=== PATIENT | female | born 1980 | race Caucasian/White ===

== ENCOUNTER 2022-01-11 14:19 | Outpatient (CLI) | payer MEDICAID, SELFPAY ==
[2022-01-11 16:06] LABS: Absolute Lymphocyte Count 2.11 X10^3/uL (0.83-4.51); Absolute Neutrophil Count 6.4 X10^3/uL (2.0-7.7); Basophil# 0.03 X10^3/uL; Basophil% 0.3 % (0-1); Eosinophil# 0.07 X10^3/uL; Eosinophils% 0.7 % (0-5); Lymphocyte # 2.11 X10^3/ul (0.83-4.51); Lymphocyte % 22.4 % (19-41); Mean Corp Hgb Conc 34.1 g/dL (32-36); Mean Corpuscular Hgb 30.4 pg (27.0-32.0); Mean Corpuscular Volume 89.1 fL (81-99); Mean Platelet Vol. 10.2 fl (6.2-12.0); Monocyte# 0.73 X10^3/uL; Monocyte% 7.8 % (0-10); NRBC Flagged by Analyzer 0 % (0-5); Neutrophil # 6.43 X10^3/uL (2.7-7.7); Neutrophil % 68.4 % (47-70); Platelet Count 274 K/mm3 (150-450); RBC Distribution Width CV 13.2 % (11.6-14.6); RBC Distribution Width SD 42.8 fl (35.1-43.9); White Blood Count 9.4 K/mm3 (4.4-11.0)
[2022-01-12 08:31] LABS: HIV - WCH Non-Reactive (Nonreactive); Hepatitis B Surface Antigen Non-Reactive (Nonreactive); Hepatitis C Antibody Non-Reactive (Nonreactive); Rubella IgG Reactive (Nonreactive); Syphilis Antibodies Non-reactive
[2022-01-15 19:07] LABS: Chlamydia By Nucleic Acid AMP Negative (Negative)
[2022-01-15 20:56] LABS: Gonococcus By Nucleic Acid AMP Negative (Negative)
[2022-01-18 12:35] LABS: HPV APTIMA, High Risk Negative (Negative)
== END 2022-01-11 23:59 | disposition home or self-care (01) ==
PROVIDERS: Visit Provider Student in an Organized Health Care Education/Training Program
DX: Z34.81 Encounter for supervision of other normal pregnancy, first trimester (principal)
CPT/HCPCS: 36415; 85025; 86703; 86762; 86780; 86803; 87086; 87088; 87340; 87491; 87591; 87624; 88175; G0145

== ENCOUNTER → 2022-05-17 | Outpatient (CLI) | payer MEDICAID, SELFPAY ==
[2022-05-17 16:34] LABS: Hematocrit 36.5 % (37-47); Hemoglobin 12.1 g/dL (12.0-15.0); Mean Corp Hgb Conc 33.2 g/dL (32-36); Mean Corpuscular Hgb 31.8 pg (27.0-32.0); Mean Corpuscular Volume 95.8 fL (81-99); Mean Platelet Vol. 9.8 fl (6.2-12.0); Platelet Count 178 K/mm3 (150-450); RBC Distribution Width CV 13.7 % (11.6-14.6); RBC Distribution Width SD 48.2 fl (35.1-43.9); Red Blood Count 3.81 M/mm3 (4.2-5.4); White Blood Count 7.9 K/mm3 (4.4-11.0)
[2022-05-17 16:40] LABS: Glucose Challenge Gest 1H 50g 143 mg/dL (70-140)
== END | disposition home or self-care (01) ==
PROVIDERS: Visit Provider Student in an Organized Health Care Education/Training Program
DX: Z34.83 Encounter for supervision of other normal pregnancy, third trimester (principal)
CPT/HCPCS: 36415; 82950; 85027; 86850

== ENCOUNTER → 2022-05-29 | Outpatient (CLI) | payer MEDICAID, SELFPAY ==
[2022-05-29 11:16] LABS: Glucose Challenge Gest 1H 50g 81 mg/dL (70-140)
== END | disposition home or self-care (01) ==
LOC: WOBLAB 09:22
PROVIDERS: Visit Provider Student in an Organized Health Care Education/Training Program
DX: Z34.83 Encounter for supervision of other normal pregnancy, third trimester (principal)
CPT/HCPCS: 36415; 82950

== ENCOUNTER → 2022-07-13 | Outpatient (CLI) | payer MEDICAID, SELFPAY | END | disposition home or self-care (01) | LOC: WOBLAB 15:38 | PROVIDERS: Visit Provider Student in an Organized Health Care Education/Training Program | DX: Z36.85 Encounter for antenatal screening for Streptococcus B (principal) | CPT/HCPCS: 87081 ==

== ENCOUNTER 2022-08-09 07:05 | Inpatient (IN) | payer MEDICAID, SELFPAY ==
[2022-08-09] VITALS (14 sets, daily range): BP systolic 93–115; BP diastolic 52–73; PULSE 76–86; RESP 16; TEMP 36.3–36.9; O2SAT 98; BMI 28.1
--- NOTE | 2022-08-09 07:21 | PCM.HP.BLA ---
History and Physical Date of Admission: 08/09/22 HPI: 41-year-old G4, P3 living 2 at 40/0 weeks, ZULEIKA 08/09/2022 by LMP, admitted for induction of labor at term. Denies leaking of fluid, vaginal bleeding, regular contractions. Reports movement. Denies headache or vision changes, chest pain or shortness of breath, nausea or vomiting, fevers or chills, diarrhea or constipation. 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 LASEK surgery in 2003 Family history: Noncontributory Allergies: No known drug allergies Medications: vitamin, acyclovir Social history: Denies tobacco, alcohol, drug use Review of system: Negative otherwise stated above Physical exam: Vitals 114/73, HR 80 General: No acute distress HEENT: Normocephalic/atraumatic, PERRLA Cardiorespiratory: No increased effort Abdomen: Soft, nontender, gravid Extremities: Minimal edema Neurologic: Cranial nerves II through XII grossly intact, no focal deficits Musculoskeletal: Strength 5 out of 5 throughout all extremities Cervical exam 3 cm per RN FHR 145/mod [place]/+accel/no decel [place]: occasional labs: Blood type B neg GBS neg 07/13 HIV negative Hepatitis B/C neg Gonorrhea/chlamydia negative Syphilis negative Rubella immune Assessment/plan: 41-year-old G4, P3 living 2 at 40/0 weeks, ZULEIKA 08/09/2022 by LMP, admitted for induction of labor at term. complicated by: Advanced maternal age Admit to labor and delivery Induction of labor with Pitocin GBS negative
[2022-08-09] MEDS: Lactated Ringers 1,000 ML 50 ML IV (07:55)
[2022-08-09 08:11] LABS: Absolute Lymphocyte Count 1.79 X10^3/uL (0.83-4.51); Absolute Neutrophil Count 6.9 X10^3/uL (2.0-7.7); Basophil# 0.04 X10^3/uL; Basophil% 0.4 % (0-1); Eosinophil# 0.03 X10^3/uL; Eosinophils% 0.3 % (0-5); Hematocrit 38.6 % (37-47); Hemoglobin 13.4 g/dL (12.0-15.0); Lymphocyte # 1.79 X10^3/ul (0.83-4.51); Lymphocyte % 18.7 % (19-41); Mean Corp Hgb Conc 34.7 g/dL (32-36); Mean Corpuscular Hgb 32.9 pg (27.0-32.0); Mean Corpuscular Volume 94.8 fL (81-99); Mean Platelet Vol. 10.6 fl (6.2-12.0); Monocyte# 0.74 X10^3/uL; Monocyte% 7.7 % (0-10); NRBC Flagged by Analyzer 0 % (0-5); Neutrophil # 6.91 X10^3/uL (2.7-7.7); Neutrophil % 72.4 % (47-70); Platelet Count 166 K/mm3 (150-450); RBC Distribution Width CV 13.6 % (11.6-14.6); RBC Distribution Width SD 47.1 fl (35.1-43.9); Red Blood Count 4.07 M/mm3 (4.2-5.4); White Blood Count 9.6 K/mm3 (4.4-11.0)
[2022-08-09] MEDS: Oxytocin 30 units/NS 500 ml 30 UNITS/500 ML IV.SOLN IV (08:24)
[2022-08-09] MEDS: LACTATED RINGERS 500 ML 999 ML IV (10:38)
[2022-08-09] MEDS: Oxytocin 30 units/NS 500 ml 30 UNITS/500 ML IV.SOLN 334 UNITS IV (11:47)
--- NOTE | 2022-08-09 11:54 | EX.PCM.OBRPT ---
Vaginal Delivery Operative Information Date of Procedure: 08/09/22 Pre-Operative Diagnosis: Leon intrauterine Post-Operative Diagnosis: Leon intrauterine Surgery / Procedure Performed: Spontaneous Vaginal Delivery Type of Anesthesia: None Estimated Blood Loss: 250cc Findings Description of Procedure: Spontaneous vaginal delivery viable infant female. Nuchal cord x2, loose, delivered through. Baby to mom. Engineering Recruiter and respiratory present for meconium fluid. Cord clamped and cut. Spontaneous delivery of placenta. No lacerations. A Gender: Female (1 minute): 8 (5 minute): 9
[2022-08-09] MEDS: 0.9% Saline Lock 10 ML Syringe IV (14:41)
[2022-08-10 00:32] VITALS: BP 102/64; PULSE 68; RESP 16; TEMP 36.4; O2SAT 97
[2022-08-10 04:19] VITALS: BP 102/58; PULSE 66; RESP 18; TEMP 36.9; O2SAT 97
--- NOTE | 2022-08-10 06:11 | DCINST_ITS ---
Discharge Instructions Diet Discharge Diet: No restrictions Activity Discharge Activity: Return to Normal Activity, May Drive and May Shower May resume sexual activity in: 4-6 weeks Weight Bearing Status: Weight bearing as tolerated Dressing / Incision Call your doctor if your incision/area has: Continuous Slow Oozing and Foul Smelling Discharge Call your doctor if you observe: Fever of 101 or Higher, Shortness of breath and Chest pain Follow Up Care Please Follow Up With: Royce Bhat MD When: 4 to 6 weeks Test Results: Test results from this visit will be discussed in further detail at your follow- up appointment, if applicable. Discharge Plan Admission Admit Date/Time: 08/09/22 07:05 Attending Provider: Nathalia Bhat Discharge Orders/Prescriptions Prescriptions: No Action Vitamin Tablet 1 tab PO QHS Disposition Discharge Orders: Discharge Patient (Routine); Ordered 08/10/22 Ordered By: Dr. Royce Bhat
--- NOTE | 2022-08-10 06:12 | PN.OBGYN_ITS ---
Subjective Subjective No overnight complaints Objective Data Objective Data Vital Signs: Vital Signs Temp Pulse Resp BP Pulse Ox O2 Del Method 98.4 F 66 18 102/58 L 97 Room Air 08/10/22 04:19 08/10/22 04:19 08/10/22 04:19 08/10/22 04:19 08/10/22 04:19 08/10/22 04:19 Oxygen Delivery Method Room Air Weight: 164 lb 0.383 oz Body Mass Index (BMI) 28.1 Intake & Output: Intake and Output for Last 24 Hours 08/08/22 08/09/22 08/10/22 23:59 23:59 23:59 Intake Total 1805.74 / 1805.74 Output Total 500 / 500 Balance 1305.74 / 1305.74 Lab / Micro Data Result Diagrams: 08/09/22 07:55 Labs: Laboratory Results - last 24 hr 08/09/22 07:55: WBC 9.6, RBC 4.07 L, Hgb 13.4, Hct 38.6, MCV 94.8, MCH 32.9 H, MCHC 34.7, RDW Std Deviation 47.1 H, RDW Coeff of Lul 13.6, Plt Count 166, MPV 10.6, Immature Gran % (Auto) 0.500, Neut % (Auto) 72.4 H, Lymph % (Auto) 18.7 L, [place] % (Auto) 7.7, Eos % (Auto) 0.3, Baso % (Auto) 0.4, Absolute Neuts (auto) 6.9, Absolute Lymphs (auto) 1.79, Nucleated RBC % 0 08/09/22 07:55: Blood Type B NEGATIVE, Antibody Screen NEGATIVE Physical Exam Const alert, oriented x3, no apparent distress, average body habitus, healthy appearing and well nourished HEENT normocephalic and moist oral mucous membranes Eyes PERRL Neck full ROM Resp normal respiratory effort, no retractions and no use of accessory muscles GI GI Narrative: Soft, nontender, uterus firm and below umbilicus Extremity normal to inspection, full ROM and no clubbing, cyanosis or edema Neuro moves all extremities and no focal motor deficits Psych mental status grossly normal, affect normal, speech normal and activity/motor behavior normal Assessment & Plan (1) Vaginal delivery: PLAN: day 1. Breast-feeding. Pain well controlled. Okay to discharge home today if okay with dragger out
[2022-08-10 09:20] VITALS: BP 105/64; PULSE 75; RESP 16; TEMP 36.6; O2SAT 94
[2022-08-10 09:56] VITALS: O2SAT 94
--- NOTE | 2022-08-10 10:22 | NURSING ---
student charting reviewed
[2022-08-10 13:30] VITALS: BP 108/67; PULSE 84; RESP 16; TEMP 36.7; O2SAT 96
== END 2022-08-10 15:40 | disposition home or self-care (01) | DRG 560 ==
PROVIDERS: Obstetrics & Gynecology; Admitting Provider Student in an Organized Health Care Education/Training Program; Referring Provider Student in an Organized Health Care Education/Training Program; Visit Provider Student in an Organized Health Care Education/Training Program
DX: O69.81X0 Labor and delivery complicated by cord around neck, without compression, not applicable or unspecified (principal); Z37.0 Single live birth; O77.0 Labor and delivery complicated by meconium in amniotic fluid; Z3A.40 40 weeks gestation of pregnancy
CPT/HCPCS: 59025; 59050; 85025; 86850; 86900; 86901; 99218; J7120; A4216; G0378

== ENCOUNTER 2023-03-15 09:26 | Outpatient (CLI) | payer MEDICAID, SELFPAY ==
[2023-03-22 12:09] LABS: HPV APTIMA, High Risk Negative (Negative)
== END 2023-03-15 23:59 | disposition home or self-care (01) ==
LOC: LABSPEC 09:29
PROVIDERS: Visit Provider Student in an Organized Health Care Education/Training Program
DX: Z12.4 Encounter for screening for malignant neoplasm of cervix (principal)
CPT/HCPCS: 87624; 88175; G0145

== ENCOUNTER → 2023-06-24 | Outpatient (CLI) | payer MEDICAID, SELFPAY ==
[2023-06-24 13:19] LABS: Absolute Lymphocyte Count 2.44 X10^3/uL (0.83-4.51); Absolute Neutrophil Count 3.9 X10^3/uL (2.0-7.7); Basophil# 0.05 X10^3/uL; Basophil% 0.7 % (0-1); Eosinophil# 0.06 X10^3/uL; Eosinophils% 0.8 % (0-5); Hematocrit 41.8 % (37-47); Hemoglobin 13.3 g/dL (12.0-15.0); Lymphocyte # 2.44 X10^3/ul (0.83-4.51); Lymphocyte % 34.5 % (19-41); Mean Corp Hgb Conc 31.8 g/dL (32-36); Mean Corpuscular Hgb 29.2 pg (27.0-32.0); Mean Corpuscular Volume 91.7 fL (81-99); Mean Platelet Vol. 10.4 fl (6.2-12.0); Monocyte# 0.58 X10^3/uL; Monocyte% 8.2 % (0-10); NRBC Flagged by Analyzer 0 % (0-5); Neutrophil # 3.92 X10^3/uL (2.7-7.7); Neutrophil % 55.5 % (47-70); Platelet Count 234 K/mm3 (150-450); RBC Distribution Width CV 12.9 % (11.6-14.6); RBC Distribution Width SD 43.4 fl (35.1-43.9); Red Blood Count 4.56 M/mm3 (4.2-5.4); White Blood Count 7.1 K/mm3 (4.4-11.0)
[2023-06-24 21:38] LABS: HIV - WCH Non-Reactive (Nonreactive); Hepatitis B Surface Antigen Non-Reactive (Nonreactive); Hepatitis C Antibody Non-Reactive (Nonreactive); Rubella IgG Reactive (Nonreactive); Syphilis Antibodies Non-reactive
[2023-06-26 05:07] LABS: V-Zoster IgG (Immunity) < 135 index (Immune >165)
== END | disposition home or self-care (01) ==
LOC: WOBLAB 11:41
PROVIDERS: Visit Provider Student in an Organized Health Care Education/Training Program
DX: Z32.00 Encounter for pregnancy test, result unknown (principal)
CPT/HCPCS: 36415; 85025; 86703; 86762; 86780; 86787; 86803; 87086; 87340

== ENCOUNTER → 2023-07-11 | Outpatient (CLI) | payer MEDICAID, SELFPAY | END | disposition home or self-care (01) | LOC: WOBLAB 11:33 | PROVIDERS: Visit Provider Student in an Organized Health Care Education/Training Program | DX: O20.0 Threatened abortion (principal); Z3A.00 Weeks of gestation of pregnancy not specified | CPT/HCPCS: 86900; 86901 ==

== ENCOUNTER 2024-07-25 21:50 | Inpatient (IN) | payer MEDICAID, SELFPAY ==
[2024-07-25] VITALS (21 sets, daily range): BP systolic 107–147; BP diastolic 55–85; PULSE 86–107; RESP 16–20; TEMP 36.9–37.2; O2SAT 95–99; BMI 30.7
[2024-07-25] MEDS: Lactated Ringers 1,000 ML 999 ML IV (21:55)
--- NOTE | 2024-07-25 21:56 | PCM.HP.OB ---
HPI - General General Date of Admission: 07/25/24 Date of Service: 07/25/24 Chief Complaint: labor HPI Narrative DIXIE CHAVEZ, is a 43 F who presents in active labor. 7 cm. ROM on arrival Maternal Data Information Final ZULEIKA: 08/01/24 Gestational age: 39 PFSH PFSH Medical History Hx of cold sores Home Medications ?Medication ?Instructions ?Recorded ?Last Taken ?Type prenat.vits,katlyn,[id number] 1 tab PO QHS 08/09/22 1 Day Ago History ~08/08/22 Allergy/AdvReac Type Severity Reaction Status Date / Time No Known Allergies Allergy Verified 08/09/22 08:22 Surgical History History of surgery Social History Smoking Status: Never smoker History Elective abortions Hx Para 3 Spontaneous abortions Hx # Term Pregnancies Ectopic pregnancies Hx # Pregnancies Multiple births # of living children NST FHR Rate Baby A Baseline: 150 Variability:: Moderate Accelerations:: 15 x 15 Decelerations:: None NST Reactive:: Yes FHR Category:: Category I Uterine Activity:: q 2 ROS Constitutional Constitutional: Denies fatigue, fever(s) or malaise Eyes Eyes: Denies change in vision ENT HEENT: Denies dizziness or headache(s) Cardiovascular Cardiovascular: Denies chest pain, dyspnea or lightheadedness Respiratory/Chest Respiratory/Chest: Denies cough or dyspnea Gastrointestinal Gastrointestinal: Denies change in bowel habits Genitourinary Genitourinary: Denies burning urination or genital lesions Integumentary Integumentary: Denies rash Neurologic Neurologic: Denies confusion, dizziness, headache(s), numbness or weakness Vital Signs Vital Signs Vital Signs: Weight Weight: 81.1 kg Body Mass Index (BMI) 30.7 Physical Exam Const alert and no apparent distress General Appearance: cooperative HEENT normocephalic Resp normal respiratory effort GI soft to palpation GI Narrative: gravid, nontender, appropriate for gestational age Extremity no calf tenderness General Extremity: edema Skin no wounds Rashes: No rashes noted Psych activity/motor behavior normal Labs Labs Labs: Blood Type B NEGATIVE Antibody Screen NEGATIVE Hct 41.8 % (37-47) Hgb 13.3 g/dL (12.0-15.0) Syphilis Total Ab Non-reactive VZV IgG Antibody < 135 index (Immune >165) L Rubella IgG Antibody Reactive (Nonreactive) Hep Bs Antigen Non-Reactive (Nonreactive) Hepatitis C Antibody Non-Reactive (Nonreactive) Chlamydia DNA (OSMAN) Negative (Negative) N.gonorrhoeae DNA (OSMAN) Negative (Negative) HIV 1&2 Antibody Non-Reactive (Nonreactive) Glucose 1 Hr 50 gm 81 mg/dL (70-140) Group B Strep DNA Negative (Negative-) Rhogam given: No Assessment & Plan (1) 39 weeks gestation of : (2) Normal labor: (3) AMA (advanced maternal age) multigravida 35+: QUALIFIERS: Trimester: third trimester Qualified Code(s): O09.523 - Supervision of elderly multigravida, third trimester PLAN: Plan admit for labor. GBS Negative Epidural prn
[2024-07-25 22:07] LABS: Absolute Lymphocyte Count 2.72 X10^3/uL (0.83-4.51); Absolute Neutrophil Count 8.5 X10^3/uL (2.0-7.7); Basophil# 0.04 X10^3/uL; Basophil% 0.3 % (0-1); Eosinophils% 0.8 % (0-5); Hematocrit 34.2 % (37-47); Hemoglobin 11.1 g/dL (12.0-15.0); Lymphocyte # 2.72 X10^3/ul (0.83-4.51); Lymphocyte % 21.7 % (19-41); Mean Corp Hgb Conc 32.5 g/dL (32-36); Mean Corpuscular Hgb 28.2 pg (27.0-32.0); Mean Platelet Vol. 10.9 fl (6.2-12.0); Monocyte# 1.03 X10^3/uL; Monocyte% 8.2 % (0-10); NRBC Flagged by Analyzer 0 % (0-5); Neutrophil # 8.53 X10^3/uL (2.7-7.7); Neutrophil % 68.3 % (47-70); Platelet Count 226 K/mm3 (150-450); RBC Distribution Width CV 14.1 % (11.6-14.6); RBC Distribution Width SD 44.4 fl (35.1-43.9); Red Blood Count 3.93 M/mm3 (4.2-5.4); White Blood Count 12.5 K/mm3 (4.4-11.0)
[2024-07-25 22:42] LABS: Syphilis Antibodies Non-reactive
[2024-07-25] MEDS: Oxytocin 15 Units/NS 250ml 15 UNITS/250 ML IV.SOLN 334 UNITS IV (22:49)
--- NOTE | 2024-07-25 22:58 | OP.PCM_ITS ---
Assessment & Plan (1) Vaginal delivery: (2) 39 weeks gestation of : Maternal Data Information Final ZULEIKA: 08/01/24 Gestational age: 39 Vaginal Delivery Maternal Presentation Maternal Presentation: Active Labor Operative Information Date of Procedure: 07/25/24 Pre-Operative Diagnosis: active labor Post-Operative Diagnosis: Surgery / Procedure Performed: Spontaneous Vaginal Delivery Type of Anesthesia: Epidural Estimated Blood Loss: 100 cc Time of Delivery: 22:48 Findings Description of Procedure: Patient quickly progressed to complete with epidural placement. Patient pushed 4 times over an intact peritoneum. Delivered the head ESTRELLA. The anterior and posterior shoulders delivered with ease. The was [laced on maternal ab domen. The cord was clamped and cut. Cord was collected. The placenta delivered with lux traction. No laceration needed repaired. Presentation: Vertex and ESTRELLA Amniotic Membrane Rupture Type: Spontaneous Time of Membrane Rupture: 2149 Amniotic Fluid Description: Lightly stained meconium Placental Delivery Description: Spontaneous Placenta Disposition: [facility] Cord Vessel Description: 3 Vessels Cord Entanglement: None Infant A Gender: Male (1 minute): 8 (5 minute): 9 Delayed Cord Clamping: Yes Post Vaginal Delivery Medications Given After Delivery: IV Pitocin Episiotomy Description: None Laceration: None Complication Complications: None
[2024-07-25] MEDS: Oxytocin 15 Units/NS 250ml 15 UNITS/250 ML IV.SOLN 83 UNITS IV (23:22)
[2024-07-26] VITALS (28 sets, daily range): BP systolic 100–136; BP diastolic 55–72; PULSE 72–91; RESP 16–18; TEMP 36.4–37.2; O2SAT 89–99
--- NOTE | 2024-07-26 13:28 | PN.OBGYN_ITS ---
Subjective Subjective Doing well. No complaints. Lochia mild. Pain controlled. Voiding and ambulating without difficulty Objective Data Objective Data Vital Signs: Vital Signs Temp Pulse Resp BP Pulse Ox O2 Del Method 97.9 F 72 18 111/69 98 Room Air 07/26/24 12:52 07/26/24 12:52 07/26/24 12:52 07/26/24 12:52 07/26/24 12:52 07/26/24 12:52 Oxygen Delivery Method Room Air Weight: 81.1 kg Body Mass Index (BMI) 30.7 Intake & Output: Intake and Output for Last 24 Hours 07/24/24 07/25/24 07/26/24 23:59 23:59 23:59 Intake Total 1082.8 / 1082.8 250 / 250 Output Total 100 / 100 900 / 900 Balance 982.8 / 982.8 -650 / -650 Lab / Micro Data 07/25/24 21:55 Labs: Laboratory Results - last 24 hr 07/25/24 21:55: WBC 12.5 H, RBC 3.93 L, Hgb 11.1 L, Hct 34.2 L, MCV 87.0, MCH 28.2, MCHC 32.5, RDW Std Deviation 44.4 H, RDW Coeff of Lul 14.1, Plt Count 226, MPV 10.9, Immature Gran % (Auto) 0.700, Neut % (Auto) 68.3, Lymph % (Auto) 21.7, [place] % (Auto) 8.2, Eos % (Auto) 0.8, Baso % (Auto) 0.3, Absolute Neuts (auto) 8.5 H, Absolute Lymphs (auto) 2.72, Nucleated RBC % 0, Syphilis Total Ab Non- reactive, Blood Type B NEGATIVE, Antibody Screen NEGATIVE ROS Constitutional Constitutional: Denies fatigue, fever(s) or malaise Eyes Eyes: Denies change in vision ENT HEENT: Denies dizziness or headache(s) Cardiovascular Cardiovascular: Denies chest pain, dyspnea or lightheadedness Respiratory/Chest Respiratory/Chest: Denies cough or dyspnea Gastrointestinal Gastrointestinal: Denies change in bowel habits Genitourinary Genitourinary: Denies burning urination or genital lesions Integumentary Integumentary: Denies rash Neurologic Neurologic: Denies confusion, dizziness, headache(s), numbness or weakness Physical Exam Const alert and no apparent distress Narrative: Fundus firm, below umbilicus. Assessment & Plan (1) Vaginal delivery: PLAN: Plan Routine care
[2024-07-26] MEDS: Ibuprofen 600 MG Tablet PO (18:03)
[2024-07-26] MEDS: Senna/Docusate Sodium 1 Tablet PO (18:04)
[2024-07-27 03:05] VITALS: BP 108/68; PULSE 76; RESP 16; TEMP 36.8
--- NOTE | 2024-07-27 06:13 | PCM.PN.OB ---
Subjective Subjective Doing well. No complaints. Lochia mild. Pain controlled. Voiding and ambulating without difficulty Objective Data Objective Data Vital Signs: Vital Signs Temp Pulse Resp BP Pulse Ox O2 Del Method 98.2 F 76 16 108/68 98 Room Air 07/27/24 03:05 07/27/24 03:05 07/27/24 03:05 07/27/24 03:05 07/26/24 16:32 07/26/24 16:32 Oxygen Delivery Method Room Air Weight: 81.1 kg Body Mass Index (BMI) 30.7 Intake & Output: Intake and Output for Last 24 Hours 07/25/24 07/26/24 07/27/24 23:59 23:59 23:59 Intake Total 1082.8 / 1082.8 250 / 250 Output Total 100 / 100 900 / 900 Balance 982.8 / 982.8 -650 / -650 Lab / Micro Data 07/25/24 21:55 ROS Constitutional Constitutional: Denies fatigue, fever(s) or malaise Eyes Eyes: Denies change in vision ENT HEENT: Denies dizziness or headache(s) Cardiovascular Cardiovascular: Denies chest pain, dyspnea or lightheadedness Respiratory/Chest Respiratory/Chest: Denies cough or dyspnea Gastrointestinal Gastrointestinal: Denies change in bowel habits Genitourinary Genitourinary: Denies burning urination or genital lesions Integumentary Integumentary: Denies rash Neurologic Neurologic: Denies confusion, dizziness, headache(s), numbness or weakness Physical Exam Const alert and no apparent distress Narrative: Fundus firm, below umbilicus. Assessment & Plan (1) Vaginal delivery: PLAN: Plan Routine care
[2024-07-27 09:00] VITALS: BP 111/84; PULSE 84; RESP 16; TEMP 36.2
[2024-07-27] MEDS: Ibuprofen 600 MG Tablet PO (09:03)
--- NOTE | 2024-07-27 13:21 | PCM.DC.SUM ---
Providers Date of Admission: 07/25/24 Reason For Visit: LABOR Diagnosis Discharge Diagnosis (1) Vaginal delivery: Status: Acute Code(s): O80 - Encounter for full-term uncomplicated delivery Medications at Discharge Home Medications prenat.vits,katlyn,[id number] 1 tab PO QHS 08/09/22 acetaminophen 500 mg tablet 1,000 mg (2 x 500 mg) PO Q6H PRN PRN Pain 1-10 Or Fever #0 tabs 07/27/24 ibuprofen 600 mg tablet 600 mg PO Q6H PRN PRN Pain Score 1-10 #0 tabs 07/27/24 Weight / BMI Weight Weight: 178 lb 12.718 oz Body Mass Index (BMI) 30.7 ABG / Lab / Microbiology Data 07/25/24 21:55 D/C Instructions Discharge Diet: No restrictions Discharge Activity: Return to Normal Activity, May Drive, May Shower and May Take a Tub Bath May resume sexual activity in: 6 weeks Weight Bearing Status: Full weight bearing Call your doctor if you observe: Fever of 101 or Higher, Inability to urinate, Using more than 1 pad per hour, Shortness of breath, Chest pain, Increased palpitations (irregular heartbeat), Calf discomfort and Uncontrolled pain Please Follow Up With: Amanda Astudillo CNM When: 2 week virtual visit and 6 week visit Meaningful Use Info Meaningful Use Meaningful Use Diagnoses (Choose all that apply): None applicable Ischemic Stroke Statin Dosing Therapy Reference: STATIN DOSE THERAPY REFERENCE: * Patients > 75 years receive moderate or high dose statin therapy. * Patients 75 years or YOUNGER should receive HIGH intensity statin dose unless contraindicated. You will be required to document reason for non-treatment if statin daily dose does not meet guidelines. HIGH DOSE STATIN THERAPY DAILY Atorvastatin > than or = to 40 mg Rosuvastatin > than or = to 20 mg Amlodipine + Atorvastatin > than or = to 2.5/40 mg Ezetimibe + Simvastatin 10/80 mg Simvastatin 80mg Discharge Plan Admission Admit Date/Time: 07/25/24 21:50 Primary Reason for Your Visit: Vaginal Delivery Attending Provider: Jessica Burt Discharge Orders/Prescriptions Prescriptions: New acetaminophen 500 mg Tablet 1,000 mg PO Q6H PRN PRN (Reason: Pain 1-10 Or Fever) Qty: 0 0RF ibuprofen 600 mg Tablet 600 mg PO Q6H PRN PRN (Reason: Pain Score 1-10) Qty: 0 0RF No Action Vitamin Tablet 1 tab PO QHS Referrals / Follow Up: Jessica Burt MD [Med Staff - Active Staff] - (2week virtual and 6 week PP) Disposition Disposition (needs filled in before D/C Order can be placed): Home, Self Care
--- NOTE | 2024-07-27 15:06 | CASEMGMT ---
Social Work Assessment Labor and Delivery Unit Patient Address:[address] [place] [address] Phone number: [phone] Date of Referral: 07/27/24 Time of Referral:? 829 Referred By: Charge nurse Date of Intervention: ?07/27/24? Time of Intervention:?1000 Reason for Referral:? history of loss Sw completed chart review and discussed patient during morning huddle. Sw encouraged to meet with patient due to history of loss of child at 5 years old. Sw presented to bedside and introduced self to mother of baby (MOB- Megan) and father of baby (FOSigrid- Leandro). Sw explained reason for sw involvement and completed assessment. History obtained from: medical records, MOB and FOB Household composition: Currently residing in the family home is KEISHA, LEVY, their three older children (Apple- 16, [place]- 12, Lori- almost 2). [place] baby to be added to residence when ready for discharge. Parents have experienced loss, their son Stefano passed at [age] years old following an illness. Parents report that their housing is safe and secure. Patient's parent/guardian status:? MOB and FOB have been together for 19 years after meeting while MOB was working at a [employer]. No reports of domestic violence or intimate partner violence. ? Medical History: ?KEISHA is 43 year old female who is 6, para 4- now 5 following labor and delivery of . KEISHA received routine care during with [facility]. KEISHA presented to hospital in labor and delivered baby via spontaneous vaginal delivery. Baby, named Lawrence, was born on 07/[birth year]/24 at 39 weeks gestation weighing 7lb 12oz with apgars of 8 and 9 at one and five minutes of life respectfully. KEISHA is breast feeding and states that it is going well. Baby will be followed by Dr. Spangler for pediatrics. Educational Status:?Both parents graduated from high school, MOB obtained some college education. No concerns with reading, learning or comprehension. Financial Status:FOSigrid is gainfully employed outside of the home working in construction. MOB is a stay at home mom. Infant Supplies:?? Parents have obtained all necessary baby supplies, including: car seat, safe sleep space, clothes, diapers and wipes. Childcare/Caregiver(s):? MOB will be the primary caregiver to baby along with FOB when he is not working. Transportation:?? Both parents have their drivers license and reliable means of transportation. No barriers at this time. Programs/Agencies Involved: ?Family is [place] [employer] [place] [facility] [place] were reminded to get baby added to insurance within 30 days. Parents express understanding. ?? Children Services/Legal Issues:???No history of children services involvement, no issues or concerns warranting referral to be made at this time. Behavioral Health Issues: ??Mental Health History: Parents deny mental health history ??? Substance Use History:?Parents deny substance use history prior to and during ? Family History:?Parents deny family substance use/ addiction, or significant mental health diagnoses. ? Drug Screens: ??No drug screens observed in chart review. Family/Social Stressors:? Parents deny any issues, concerns or stressors at this time. Parents become understandably and respectfully tearful when discussing the loss of their son 9 years ago. Parents state that they have processed that loss but it is something that they will always carry with them. Support Systems: Parents state that they do not have a lot of supports, its mostly the two of them along with some friends who are supportive and christianity family. Depression/Shaken Baby/Safe Sleeping:? Sw educated parents at length regarding signs and symptoms of baby blues and mood and anxiety disorders. Parents express understanding, FOB reports that if MOB were to struggle he would know what that looks like and he would know how to help and support her.. Sw educated parents on shaken baby prevention and ABCs of safe sleep. Parents express understanding. ASSESSMENT:? MOB and baby admitted following labor and delivery of . Parents anticipating discharge for today. Parents tearful when discussing their prior loss. Parents state that they have supportive friends from christianity and some neighbors who are helpful when needed. Parents observed providing loving and appropriate hands on care of baby. Parents were talkative and receptive to sw involvement and support. Parents have obtained all necessary baby supplies. PLAN: MOB and baby to be discharged when medically ready. Parents were provided literature on safe sleep, shaken baby prevention, Help Me Grow, signs and symptoms of baby blues and mood and anxiety disorders, and list of [facility] resources that are available to parents if necessary. ?No other services requested or indicated. Alexey Guzmán, QUALITY SYSTEMS TECHNICIAN, CLAIM PROFESSIONAL
== END 2024-07-27 14:30 | disposition home or self-care (01) | DRG 560 ==
LOC: WPOUT 21:56 → WP 21:56
PROVIDERS: Admitting Provider Obstetrics & Gynecology; Referring Provider Obstetrics & Gynecology; Visit Provider Obstetrics & Gynecology
DX: O42.92 Full-term premature rupture of membranes, unspecified as to length of time between rupture and onset of labor (principal); Z37.0 Single live birth; O77.0 Labor and delivery complicated by meconium in amniotic fluid; Z3A.39 39 weeks gestation of pregnancy
CPT/HCPCS: 59025; 59050; 85025; 86780; 86850; 86900; 86901; 99221; J7120; G0378